=== PATIENT | female | born 1980 | race Hispanic/Latino ===

== ENCOUNTER 2016-05-29 10:40 | Emergency (ER) | payer OTHER ==
[~2016-05-29] VITALS: Ht 165.1 cm; Wt 66.2 kg
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
[2016-05-29] MEDS ORDERED: NAPROSYN500 M1 PO (12:28)
[2016-05-29] MEDS ORDERED: CYCLOBENZAPRINE5 M2 PO (12:28)
[2016-05-29 12:45] VITALS: BP 110/70
== END 2016-05-29 12:46 ==
LOC: ERH 10:40
DX: M54.2 Cervicalgia (principal)
CPT/HCPCS: 81025